=== PATIENT | female | born 1995 | race African-American/Black ===

== ENCOUNTER 2019-09-02 09:24 | Emergency (ER) | payer OTHER ==
--- NOTE | 2019-09-02 11:37 | ED ---
Lower Extremity - HPI Summary HPI Summary: Patient is a 23 y/o F presenting to the ED for a chief complaint of left patella dislocation and pain. Patient states that on the night of 09/01/19, she was getting out of her bed when she felt her left knee "come out of place." Patient denies fever or swelling. She is unable to bear weight. She took OTC medications at 08:30 on 09/02/19, but she is unsure what she took. No aggravating or alleviating factors are noted. In April 2019, she reports having a similar dislocation. Any significant PMHx or PSHx is denied. Patient denies ant tobacco, alcohol, or drug use. LNMP was 14 days ago. Allergies noted. Medications reviewed. - History of Current Complaint Chief Complaint: EDExtremityLower Stated Complaint: L LEG KNEE INJ PER PT Time Seen by Provider: 09/02/19 11:07 Hx Obtained From: Patient Mechanism Of Injury: Other Onset of Pain: Immediate Onset/Duration: Still Present Severity Initially: Severe Severity Currently: Severe Pain Intensity: 8 Pain Scale Used: 0-10 Numeric Timing: Constant Location: Is Discrete @ - Left knee Associated Signs And Symptoms: Positive: Knee Pain - Left Aggravating Factor(s): Nothing Alleviating Factor(s): Nothing Able to Bear Weight: No - Allergies/Home Medications Allergies/Adverse Reactions: Allergies Allergy/AdvReac Type Severity Reaction Status Date / Time No Known Allergies Allergy Verified 09/02/19 09:30 PMH/Surg Hx/FS Hx/Imm Hx Previously Healthy: Yes Endocrine/Hematology History: Denies: Hx Diabetes Sensory History: Denies: Hx Legally Blind, Hx Deafness Opthamlomology History: Denies: Hx Legally Blind EENT History: Denies: Hx Deafness - Surgical History Surgical History: None Surgery Procedure, Year, and Place: None Infectious Disease History: No Infectious Disease History: Reports: Traveled Outside the [place] in Last 30 Days - Family History Known Family History: Negative: Diabetes - Social History Occupation: Student Lives: Alone Alcohol Use: None Hx Substance Use: No Substance Use Type: Reports: None Hx Tobacco Use: No Smoking Status (MU): Never Smoked Tobacco Review of Systems Negative: Fever Positive: Arthralgia - Left knee. Negative: Edema All Other Systems Reviewed And Are Negative: Yes Physical Exam - Summary Physical Exam Summary: Constitutional: Well-developed, Well-nourished, Alert. (-) Distressed Skin: Warm, Dry HENT: Normocephalic; Atraumatic Eyes: Conjunctiva normal Neck: Musculoskeletal ROM normal neck. (-) JVD, (-) Stridor, (-) Tracheal deviation Cardio: Rhythm regular, rate normal, Heart sounds normal; Intact distal pulses; Radial pulses are 2+ and symmetric. (-) Murmur Pulmonary/Chest wall: Effort normal. (-) Respiratory distress, (-) Wheezes, (-) Rales Abd: Soft, (-) tenderness, (-) Distension, (-) Guarding, (-) Rebound Musculoskeletal: (-) Edema. Tenderness over the patella, limited ROM secondary to pain, small effusion. Lymph: (-) Cervical adenopathy Neuro: Alert, Oriented x3 Psych: Mood and affect Normal Triage Information Reviewed: Yes Vital Signs On Initial Exam: Initial Vitals Temp Pulse Resp BP Pulse Ox 97.4 F 94 16 137/89 98 09/02/19 09:27 09/02/19 09:27 09/02/19 09:27 09/02/19 09:27 09/02/19 09:27 Vital Signs Reviewed: Yes Procedures - Sedation Patient Received Moderate/Deep Sedation with Procedure: No Diagnostics - Vital Signs Vital Signs Temp Pulse Resp BP Pulse Ox 09/02/19 09:27 97.4 F 94 16 137/89 98 - Laboratory Lab Statement: Any lab studies that have been ordered have been reviewed, and results considered in the medical decision making process. - Radiology Knee X-ray Radiology Interpretation Completed By: Radiologist Summary of Radiographic Findings: Knee X-ray IMPRESSION: JOINT EFFUSION WITH SMALL BONE FRAGMENT ALONG THE MEDIAL PATELLA WHICH MAY REFLECT AVULSION INJURY. Reviewed by Dr. Dunbar. Lower Extremity Course/Dx - Course Course Of Treatment: Patient is here with what sounds like a dislocated patella that she self reduced. Patient's had similar issues in the past and needed physical therapy. Patient had an neck show showed a small avulsion fracture on her patella. Patient he has a knee brace. Patient was discharged with crutches and orthopedic surgery follow-up - Diagnoses Provider Diagnoses: Dislocation of left patella Discharge ED - Sign-Out/Discharge Documenting (check all that apply): Patient Departure - Discharge - Discharge Plan Condition: Stable Disposition: HOME Patient Education Materials: Patellar Dislocation (ED) Referrals: [facility] [Primary Care Provider] - Juan Manuel Alvarado MD [Medical Doctor] - Additional Instructions: PLEASE RETURN TO EMERGENCY DEPARTMENT FOR SEVERE PAIN, WEAKNESS IN YOUR LEG THAT IS NEW, NUMBNESS, TINGLING, OR ANY NEW OR WORSENING SYMPTOMS. Please follow up with your primary care physician and Dr. Alvarado. Please make all follow-ups in 1-3 days unless I advise you otherwise. Take Motrin or Tylenol for pain. Use your crutches. - Billing Disposition and Condition Condition: STABLE Disposition: Home - Attestation Statements Document Initiated by Roxaneibmyrna: Yes Documenting Scribe: Kaia Thomas Provider For Whom Roxaneibmyrna is Documenting (Include Credential): Fabian Dunbar MD Scribe Attestation: Kaia Lemon, scribed for Fabian Dunbar MD on 09/02/19 at 2120. Scribe Documentation Reviewed: Yes Provider Attestation: The documentation as recorded by the Kaia madrid accurately reflects the service I personally performed and the decisions made by , Fabian Dunbar MD Status of Scribe Document: Viewed
[2019-09-02 12:14] VITALS: BP 129/79
== END 2019-09-02 11:45 | disposition home or self-care (01) ==
LOC: ED 09:24
DX: S83.005A Unspecified dislocation of left patella, initial encounter (principal); S82.002A Unspecified fracture of left patella, initial encounter for closed fracture; X58.XXXA Exposure to other specified factors, initial encounter; Y93.89 Activity, other specified; Y92.003 Bedroom of unspecified non-institutional (private) residence as the place of occurrence of the external cause
CPT/HCPCS: 99282